=== PATIENT | male | born 1935 | race Caucasian/White ===

== ENCOUNTER → 2017-01-30 | Outpatient (CLI) | payer MEDICARE ==
--- NOTE | 2017-01-30 12:08 | FL ---
DATE OF EXAM: 01/30/2017 11:56 AM MODIFIED SWALLOW / DEGLUTITION STUDY CLINICAL HISTORY: Dysphagia. TECHNIQUE: Deglutition study is performed utilizing thin liquid barium, honey and nectar thick liqui d barium, barium thick applesauce, and barium coated cracker. COMPARISON: None. FINDINGS: The oral and pharyngeal phases show satisfactory initiation with delayed propagation with a ll modalities tested, progressively with more thickened liquids and barium coated cracker. Normal ma stication is seen with solid modalities tested. Penetration is noted with the thin barium liquid pro ximal to the vocal cords without cough reflex. Incomplete closure of the epiglottis is also noted. Th ere is no evidence of aspiration with any modality tested. No significant pharyngeal residue was zafar reciated. IMPRESSION: Penetration with thin barium liquid, delayed propagation that occurred progressively with more thickened liquids, and incomplete closure of the epiglottis. No evidence of aspiration. Please refer to speech therapist notes for further details if necessary.
== END ==
LOC: RADFLMAIN 11:14
PROVIDERS: ATTEND Family Medicine
DX: I69.821 Dysphasia following other cerebrovascular disease (principal)
CPT/HCPCS: 74230

== ENCOUNTER 2017-05-18 16:50 | Inpatient (IN) | payer MEDICARE ==
[2017-05-18] MEDS ORDERED: SODIUM CHLORIDE 0.9% 1,000 ML IV STA ×2 (19:09)
[2017-05-18] MEDS ORDERED: ACETAMINOPHEN IV (For NPO) 1,000 MG in SALINE 100 100ML.BAG IVPB STA (19:24)
--- NOTE | 2017-05-18 19:27 | ED ---
General Adult HPI - General Source: patient, RN notes reviewed Mode of arrival: wheelchair Limitations: no limitations <Vinny Carson - Last Filed: 05/18/17 21:33> <Nacho Paul - Last Filed: 05/19/17 04:14> - General Chief complaint: Weakness Stated complaint: Weakness Time Seen by Provider: 05/18/17 18:56 - History of Present Illness Initial comments: Patient 81-year-old male who is nonverbal and history provided by family who is at bedside. Patient's family states that he has had CVA in the past. States is nonverbal and incontinent. States he goes to day camp. States that they were recommended to bring him here to the emergency room because they felt that he was not acting quite like himself. They do admit that his had increased weakness over the last week. The admit to a cough and congestion. Denies any other complaints. Patient does not provide any history. They do admit to a fever at home has not had any Tylenol or Motrin today. Denies any nausea or vomiting. (Vinny Carson) - Related Data Home Medications Medication Instructions Recorded Confirmed Simvastatin 40 mg PO DAILY 05/18/17 05/18/17 Allergies Allergy/AdvReac Type Severity Reaction Status Date / Time No Known Allergies Allergy Unverified 05/18/17 19:20 Review of Systems ROS Other: All systems not noted in ROS Statement are negative. <Vinny Carson - Last Filed: 05/18/17 21:33> ROS Other: All systems not noted in ROS Statement are negative. <Nacho Paul - Last Filed: 05/19/17 04:14> ROS Statement: Those systems with pertinent positive or pertinent negative responses have been documented in the HPI. Past Medical History Past Medical History: CVA/TIA, Skin Disorder Additional Past Medical History / Comment(s): Left side stroke, history of alcohol abuse History of Any Multi-Drug Resistant Organisms: None Reported Past Surgical History: No Surgical Hx Reported Past Psychological History: No Psychological Hx Reported Smoking Status: Former smoker Past Alcohol Use History: None Reported Past Drug Use History: None Reported <Vinny Carson - Last Filed: 05/18/17 21:33> General Exam Limitations: no limitations <Vinny Carson - Last Filed: 05/18/17 21:33> <Nacho Paul - Last Filed: 05/19/17 04:14> - General Exam Comments Initial Comments: General: The patient is awake and alert, in no distress, and does not appear acutely ill. Eye: Pupils are equal, round and reactive to light, extra-ocular movements are intact. No nystagmus. There is normal conjunctiva bilaterally. No signs of icterus. Ears, nose, mouth and throat: There are moist mucous membranes and no oral lesions. Neck: The neck is supple, there is no tenderness or JVD. Cardiovascular: There is a regular rate and rhythm. No murmur, rub or gallop is appreciated. Respiratory: Lungs are clear to auscultation, respirations are non-labored, breath sounds are equal. No wheezes, stridor, rales, or rhonchi. Gastrointestinal: No appearance of abdomen. Admits soft on palpation. Normal bowel sounds. Musculoskeletal: Normal ROM, no tenderness. Strength 5/5. Sensation intact. Pulses equal bilaterally 2+. Neurological: Limited neurological exam. Patient's history. Skin: Skin is warm and dry and no rashes or lesions are noted. Psychiatric: Cooperative. (Vinny Carson) Medical Decision Making - Lab Data Result diagrams: 05/18/17 19:33 05/18/17 19:33 <Vinny Carson - Last Filed: 05/18/17 21:33> - Lab Data Result diagrams: 05/18/17 19:33 05/18/17 19:33 <Nacho Paul - Last Filed: 05/19/17 04:14> - Medical Decision Making Patient lives been reviewed shows 17,000 white count. Patient's urinalysis shows evidence for urinary tract infection. Chest x-rays is negative at this time. There is concern for possible early pneumonia. Started on Rocephin/ azithromycin here in the emergency room. Will be admitted to continue on antibiotics. (Vinny Carson) 81-year-old male presenting with decreased level of activity and fever. Patient 's family does report minimal cough over the last day or so. Chest x-ray does not show focal pneumonia, urinalysis is positive. Patient was initially hypoxic , tachycardic and febrile. There is concern for early pneumonia with history of cough and fever. Patient will be treated for both urinary tract infection and early pneumonia. Admitted to internal medicine. (Nacho Paul) - Lab Data Lab Results 05/18/17 05/18/17 05/18/17 Range/Units 19:33 19:33 19:33 WBC 17.6 H (3.8-10.6) k/uL RBC 4.73 (4.30-5.90) m/uL Hgb 15.0 (13.0-17.5) gm/dL Hct 45.8 (39.0-53.0) % MCV 96.7 (80.0-100.0) fL MCH 31.7 (25.0-35.0) pg MCHC 32.8 (31.0-37.0) g/dL RDW 14.0 (11.5-15.5) % Plt Count 227 (150-450) k/uL Neutrophils % 83 % Lymphocytes % 7 % Monocytes % 7 % Eosinophils % 1 % Basophils % 0 % Neutrophils # 14.7 H (1.3-7.7) k/uL Lymphocytes # 1.2 (1.0-4.8) k/uL Monocytes # 1.3 H (0-1.0) k/uL Eosinophils # 0.1 (0-0.7) k/uL Basophils # 0.1 (0-0.2) k/uL Sodium 143 (137-145) mmol/L Potassium 4.7 (3.5-5.1) mmol/L Chloride 107 (98-107) mmol/L Carbon Dioxide 23 (22-30) mmol/L Anion Gap 13 mmol/L BUN 17 (9-20) mg/dL Creatinine 0.60 L (0.66-1.25) mg/dL Est GFR (MDRD) Af Amer >60 (>60 ml/min/1.73 sqM) Est GFR (MDRD) Non-Af >60 (>60 ml/min/1.73 sqM) Glucose 127 H (74-99) mg/dL Plasma Lactic Acid [place] (0.7-2.0) mmol/L Calcium 9.5 (8.4-10.2) mg/dL Total Bilirubin 1.7 H (0.2-1.3) mg/dL AST 37 (17-59) U/L ALT 31 (21-72) U/L Alkaline Phosphatase 60 (38-126) U/L Total Creatine Kinase 72 (55-170) U/L CK-MB (CK-2) 0.9 (0.0-2.4) ng/mL CK-MB (CK-2) Rel Index 1.3 Troponin I <0.012 (0.000-0.034) ng/mL Total Protein 7.3 (6.3-8.2) g/dL Albumin 4.2 (3.5-5.0) g/dL Urine Color Urine Appearance (Clear) Urine pH (5.0-8.0) Ur Specific [place] (1.001-1.035) Urine Protein (Negative) Urine Glucose (UA) (Negative) Urine Ketones (Negative) Urine Blood (Negative) Urine Nitrite (Negative) Urine Bilirubin (Negative) Urine Urobilinogen (<2.0) mg/dL Ur Leukocyte Esterase (Negative) Urine RBC (0-5) /hpf Urine WBC (0-5) /hpf Urine Bacteria (None) /hpf 05/18/17 05/18/17 Range/Units 19:33 20:35 WBC (3.8-10.6) k/uL RBC (4.30-5.90) m/uL Hgb (13.0-17.5) gm/dL Hct (39.0-53.0) % MCV (80.0-100.0) fL MCH (25.0-35.0) pg MCHC (31.0-37.0) g/dL RDW (11.5-15.5) % Plt Count (150-450) k/uL Neutrophils % % Lymphocytes % % Monocytes % % Eosinophils % % Basophils % % Neutrophils # (1.3-7.7) k/uL Lymphocytes # (1.0-4.8) k/uL Monocytes # (0-1.0) k/uL Eosinophils # (0-0.7) k/uL Basophils # (0-0.2) k/uL Sodium (137-145) mmol/L Potassium (3.5-5.1) mmol/L Chloride (98-107) mmol/L Carbon Dioxide (22-30) mmol/L Anion Gap mmol/L BUN (9-20) mg/dL Creatinine (0.66-1.25) mg/dL Est GFR (MDRD) Af Amer (>60 ml/min/1.73 sqM) Est GFR (MDRD) Non-Af (>60 ml/min/1.73 sqM) Glucose (74-99) mg/dL Plasma Lactic Acid [place] 1.3 (0.7-2.0) mmol/L Calcium (8.4-10.2) mg/dL Total Bilirubin (0.2-1.3) mg/dL AST (17-59) U/L ALT (21-72) U/L Alkaline Phosphatase (38-126) U/L Total Creatine Kinase (55-170) U/L CK-MB (CK-2) (0.0-2.4) ng/mL CK-MB (CK-2) Rel Index Troponin I (0.000-0.034) ng/mL Total Protein (6.3-8.2) g/dL Albumin (3.5-5.0) g/dL Urine Color Yellow Urine Appearance Cloudy (Clear) Urine pH 7.5 (5.0-8.0) Ur Specific [place] 1.014 (1.001-1.035) Urine Protein 1+ H (Negative) Urine Glucose (UA) Negative (Negative) Urine Ketones Negative (Negative) Urine Blood Trace H (Negative) Urine Nitrite Negative (Negative) Urine Bilirubin Negative (Negative) Urine Urobilinogen <2.0 (<2.0) mg/dL Ur Leukocyte Esterase Moderate H (Negative) Urine RBC 6 H (0-5) /hpf Urine WBC 27 H (0-5) /hpf Urine Bacteria Many H (None) /hpf Disposition Time of Disposition: 21:34 <Vinny Carson - Last Filed: 05/18/17 21:33> <Nacho Paul - Last Filed: 05/19/17 04:14> Clinical Impression: UTI (urinary tract infection) Narrative: Concern for early pneumonia (Vinny Carson) Disposition: HOME SELF-CARE Condition: Good Addendum entered and electronically signed by Vinny Carson PA-C 05/18/17 22: 34: EKG performed at 2143: A 12-lead EKG was performed and interpreted by me as showing the following: Rate is 79, and rhythm is normal sinus. There are normal QRS complexes and normal R-wave progression. ST segments have no elevation or depression, and [place] segments appear normal.
[2017-05-18 19:50] LABS: Basophils # (A) 0.1 k/uL (0-0.2); Basophils % (A) 0 %; CH 32.3; CHCM 33.5; Eosinophils # (A) 0.1 k/uL (0-0.7); Eosinophils % (A) 1 %; HCT 45.8 % (39.0-53.0); HDW 2.27; Luc # (Auto) 0.29; Luc % (Auto) 2; Lymphocytes # (A) 1.2 k/uL (1.0-4.8); Lymphocytes % (A) 7 %; MCH 31.7 pg (25.0-35.0); MCHC 32.8 g/dL (31.0-37.0); MCV 96.7 fL (80.0-100.0); Mean Platelet Volume 8.4; Monocytes # (A) 1.3 k/uL (0-1.0); Monocytes % (A) 7 %; Neutrophils # (A) 14.7 k/uL (1.3-7.7); Neutrophils % (A) 83 %; RBC 4.73 m/uL (4.30-5.90); WBC 17.6 k/uL (3.8-10.6); WBC (Perox) 17.29
[2017-05-18 20:03] LABS: ALT 31 U/L (21-72); AST 37 U/L (17-59); Alkaline Phosphatase 60 U/L (38-126); Anion Gap 13 mmol/L; Blood Urea Nitrogen 17 mg/dL (9-20); Calcium 9.5 mg/dL (8.4-10.2); Carbon Dioxide 23 mmol/L (22-30); Chloride 107 mmol/L (98-107); Glucose 127 mg/dL (74-99); Non-African American GFR(MDRD) >60 (>60 ml/min/1.73 sqM); Potassium 4.7 mmol/L (3.5-5.1); Sodium 143 mmol/L (137-145); Total Bilirubin 1.7 mg/dL (0.2-1.3); Total Protein 7.3 g/dL (6.3-8.2)
[2017-05-18 20:18] LABS: Creatine Kinase 72 U/L (55-170)
--- NOTE | 2017-05-18 20:26 | XR ---
EXAMINATION TYPE: XR chest 2V DATE OF EXAM: 05/18/2017 COMPARISON: NONE HISTORY: Weakness TECHNIQUE: Frontal and lateral views of the chest are obtained. FINDINGS: There is no heart failure nor confluent pneumonic infiltrate. There is small linear densit y at the lateral left lung base. There are chest leads. Heart size is normal. Thoracic aorta is ather omatous. IMPRESSION: Mild scarring or subsegmental atelectasis at the left lung base. Normal heart.
[2017-05-18 20:32] LABS: Creatine Kinase MB 0.9 ng/mL (0.0-2.4); Troponin I <0.012 ng/mL (0.000-0.034)
[2017-05-18 20:49] LABS: Appearance,Urine Cloudy (Clear); Bacteria,Urine Many /hpf; Bilirubin,Urine Negative (Negative); Glucose,Urine (UA) Negative (Negative); Ketones,Urine Negative (Negative); Leukocyte Esterase,Urine Moderate (Negative); Nitrite,Urine Negative (Negative); PH, Urine 7.5 (5.0-8.0); Particle Count 169559; Protein,Urine 1+ (Negative); RBC,Urine 6 /hpf (0-5); Specific Gravity,Urine 1.014 (1.001-1.035); UA Billing (MACRO vs. MICRO) MICRO; Urobilinogen,Urine <2.0 mg/dL (<2.0); WBC,Urine 27 /hpf (0-5)
[2017-05-18] MEDS ORDERED: AZITHROMYCIN 500 MG in SODIUM CHLORIDE 0.9% 250 ML IVPB STA (21:36)
[2017-05-18] MEDS ORDERED: PNEUMONIA PROTOCOL UTILIZED 1 EACH MISC PO PRN (21:36)
[2017-05-18 22:32] LABS: INR 1.2 (<1.2); Partial Thromboplastin Time 27.5 sec (22.0-30.0)
[2017-05-19] MEDS: ENOXAPARIN 40 MG/0.4 ML SYRINGE SQ SCH (08:48)
[2017-05-19] MEDS: ATORVASTATIN 20 MG TAB PO SCH (08:48)
[2017-05-19] MEDS: ASPIRIN 81 MG CHEW PO SCH (17:44)
[2017-05-19] MEDS ORDERED: AZITHROMYCIN 500 MG TAB PO SCH (21:00)
[2017-05-20 07:35] LABS: Basophils % (A) 0 %; CH 30.9; CHCM 32.3; Eosinophils # (A) 0.2 k/uL (0-0.7); Eosinophils % (A) 2 %; HCT 35.1 % (39.0-53.0); Luc # (Auto) 0.28; Luc % (Auto) 4; Lymphocytes # (A) 1.7 k/uL (1.0-4.8); Lymphocytes % (A) 21 %; MCH 31.7 pg (25.0-35.0); MCV 96.1 fL (80.0-100.0); Mean Platelet Volume 7.6; Monocytes # (A) 0.8 k/uL (0-1.0); Monocytes % (A) 10 %; Neutrophils % (A) 63 %; RBC 3.65 m/uL (4.30-5.90); RDW 12.9 % (11.5-15.5); WBC 7.9 k/uL (3.8-10.6); WBC (Perox) 8.49
[2017-05-20 08:03] LABS: HGB 11.6 gm/dL (13.0-17.5)
[2017-05-20] MEDS: ASPIRIN 81 MG CHEW PO SCH ×2 (08:09→08:49)
[2017-05-20] MEDS: ENOXAPARIN 40 MG/0.4 ML SYRINGE SQ SCH ×2 (08:09→08:49)
[2017-05-20] MEDS: ATORVASTATIN 20 MG TAB PO SCH ×2 (08:09→08:49)
[2017-05-20 08:46] VITALS: BP 119/67; PULSE 70; RESP 12; TEMP 98
--- NOTE | 2017-05-20 08:58 | HP ---
DATE OF ADMISSION: 05/18/2017 PRESENTING COMPLAINT: Fever, sweating. HISTORY OF PRESENTING COMPLAINT: This is a pleasant 81-year-old patient of Dr. Sanchez. History is obtained by the at the bedside. Patient has had a prior stroke and patient is pretty much nonverbal. Patient normally uses a walker to get about. Patient has got chronic loose stools about 2 bowel movements a day. Has had extensive workup in the past. Patient did have a swallow evaluation with modified barium swallow and was shown to be aspirating thin liquids. He has been told to do chin tuck and assists the patient in feeding. She noticed that patient has been coughing with feeding for the last couple of days and yesterday when he came back from [facility], patient has rattling in the chest, having some chills and having perspiring. The patient in the ER was found to be tachycardic, febrile, septic picture, was started on antibiotics, IV fluids, and admitted for the same. The patient himself is nonverbal though can follow commands. REVIEW OF SYSTEMS: Cannot be obtained as patient is nonverbal. Past medical history of stroke with left-sided weakness, urinary incontinence, uses a walker and noninfectious diarrhea. PAST SURGICAL HISTORY: None. SOCIAL HISTORY: Patient used to be industrial sales, . Did smoke in the past. Family history of myocardial infarction. HOME MEDICATIONS: Simvastatin 40 mg a day. ALLERGIES: None. ON EXAMINATION: VITAL SIGNS ON PRESENTATION: Temperature 100.7, pulse 120, respirations 20, blood pressure 109/64, pulse ox 93% on room air. GENERAL APPEARANCE: Lying in bed, comfortable appearing though tired. EYES: Pupils equal. Conjunctivae normal. HENT: Oral cavity normal. NECK: JVD not raised. Mass not palpable. RESPIRATORY: Effort ( ). LUNGS: Some right basal crackles. CARDIOVASCULAR: First and second sounds normal. No edema. ABDOMEN: Soft, nontender. Liver and spleen not palpable. LYMPHATIC: No lymphadenopathy of the neck or axillae. PSYCHIATRY: Unable to assess. NEUROLOGICAL: Patient does not speak. Weak on the left side. Power is 4/5. INVESTIGATIONS: White count 17.6, hemoglobin 15.0. Potassium 4.7. Chest x-ray reviewed by me shows possible infiltrate right middle lobe. ASSESSMENT: 1. Acute aspiration pneumonia in the right middle lobe causing sepsis on presentation. 2. Left hemiparesis from a prior stroke. 3. Chronic dysarthria from prior stroke. 4. Chronic dysphagia with thin liquids confirmed by modified barium swallow about 3 months ago. 5. Hyperlipidemia. 6. Gait dysfunction, uses a walker. PLAN: The patient was started on IV ceftriaxone. Will discontinue the Zithromax. I will give IV fluids. Will also add a baby aspirin. Aspiration precautions are to be maintained. Care was discussed with the . Questions were answered. SHAZIA
[2017-05-20 13:27] VITALS: BMI 19.6
--- NOTE | 2017-05-20 18:39 | P.DS ---
<Ursula Joseph - Last Filed: 05/20/17 18:24> Providers Date of admission: 05/18/17 21:34 Expected date of discharge: 05/20/17 Attending physician: Juan Antonio Adames Primary care physician: Sundar Sanchez Hospital Course: FINAL DIAGNOSES: -Acute aspiration pneumonia right lung causing sepsis on presentation. -Left hemiparesis from prior stroke. -Chronic dysarthria from prior stroke. -Chronic dysphagia with thin liquids confirmed by modified barium swallow about 3 months ago. -Hyperlipidemia. -Gait dysfunction, uses walker. HOSPTIAL COURSE: This 81-year-old male history of prior stroke had been noticed to be coughing during feeding developed rattling in his chest with some chills and perspiration presented with a septic picture. IV antibiotics, fluids were initiated patient admitted for the same. Patient is been afebrile vital signs stable, aspiration precautions in place, speech consulted to reeducate family and patient regarding proper swallowing technique. Patient doing well, at the bedside, anxious to take patient home. Patient conditions improved and stabilized and as such will be discharged home. PHYSICAL EXAM: CARDIOVASCULAR: First and second sounds noted no edema RESPIRATORY: Effort normal, few basilar crackles noted right base NEUROLOGIC: Patient does not speak, left-sided weakness strength 4/5. Patient was seen and examined by nurse practitioner Ursula Joseph in all elements of the case discussed with attending Dr. Adames DISPOSITION: Home to the care of his with home care. Patient Condition at Discharge: Stable Plan - Discharge Summary New Discharge Prescriptions: New Aspirin 81 mg PO DAILY Cefuroxime Axetil [Ceftin] 500 mg PO BID #14 tab Continue Simvastatin 40 mg PO DAILY Discharge Medication List Simvastatin 40 mg PO DAILY 05/18/17 [History] Aspirin 81 mg PO DAILY 05/20/17 [Rx] Cefuroxime Axetil [Ceftin] 500 mg PO BID #14 tab 05/20/17 [Rx] Follow up Appointment(s)/Referral(s): Sundar Sanchez MD [Primary Care Provider] - 1 Week Patient Instructions/Handouts: Urinary Tract Infection in Men (DC) Activity/Diet/Wound Care/Special Instructions: chin tuck/supervised feeding. avoid thin liquids; honey thick liquids Discharge Disposition: HOME SELF-CARE <Juan Antonio Adames - Last Filed: 05/20/17 21:55> Hospital Course: Attending note. Date of service-05/20/2017 This patient was seen and examined by me . I reviewed the note of my nurse practitioner, Ms. Joseph. Discussed with her, additional findings as below. Admitted with aspiration pneumonia. Doing better. Afebrile. On examination: Lungs-crackles cleared Investigations: White count normal Assessment and plan: Acute aspiration pneumonitis causing sepsis on presentation and UTI which has responded to the current antibiotic. Care was discussed at length with the patient and at the bedside. Will have speech therapy reinforced her diet at the bedside technique to the Discharge planning more than 35 minutes.
== END 2017-05-20 15:02 | disposition home or self-care (01) | DRG 871 ==
LOC: EC 16:50 → 3SUR 21:34
PROVIDERS: ADMIT Hospitalist; ATTEND Hospitalist
DX: A41.9 Sepsis, unspecified organism (principal); J69.0 Pneumonitis due to inhalation of food and vomit; I69.359 Hemiplegia and hemiparesis following cerebral infarction affecting unspecified side; N39.0 Urinary tract infection, site not specified; I69.322 Dysarthria following cerebral infarction; E78.5 Hyperlipidemia, unspecified; R26.9 Unspecified abnormalities of gait and mobility; F10.10 Alcohol abuse, uncomplicated; R13.10 Dysphagia, unspecified; Z79.899 Other long term (current) drug therapy; Z87.891 Personal history of nicotine dependence
CPT/HCPCS: 36415; 71020; 80053; 81001; 82550; 82553; 83605; 84484; 85025; 85610; 85730; 87040; 87077; 87086; 87186; 93005; 96365; 99285